=== PATIENT | female | born 1990 | race Caucasian/White ===

== ENCOUNTER 2017-04-01 08:24 | Emergency (ER) | payer BC ==
[~2017-04-01] VITALS: Ht 154.9 cm; Wt 52.6 kg
[~2017-04-01 08:24] MED LIST: ALPRAZOLAM ODT0.5 MG PO; AMOXICILLIN500 MG PO; CIPRO500 MG PO; CODEINE SU PO; NORCO 5-325 TA1 EACH PO; NORCO 7.5-3251 EACH PO; ZOFRAN4 MG PO
[2017-04-01] MEDS ORDERED: CITALOPRAM HBR20 MG PO (08:41)
[2017-04-01] MEDS ORDERED: PROPRANOLOL HCL20 MG PO (08:41)
[2017-04-01] MEDS ORDERED: LEVOFLOXACIN750 MG PO (10:31)
[2017-04-01] MEDS ORDERED: NORCO 5-325 TA1 EACH PO (10:31)
== END 2017-04-01 11:25 | disposition home or self-care (01) ==
LOC: ED 08:24
DX: N12 Tubulo-interstitial nephritis, not specified as acute or chronic (principal); F41.9 Anxiety disorder, unspecified; F17.200 Nicotine dependence, unspecified, uncomplicated; Z87.442 Personal history of urinary calculi; Z79.899 Other long term (current) drug therapy
CPT/HCPCS: 76775; 80053; 81001; 83690; 84703; 85025; 87077; 87088; 87186; 96361; 96374; 96375; 99284; J0696; J1885; J7030

== ENCOUNTER 2018-02-01 05:18 | Emergency (ER) | payer BC ==
[~2018-02-01] VITALS: Ht 154.9 cm; Wt 57.1 kg
[~2018-02-01 05:18] MED LIST changes: +CITALOPRAM HBR20 MG PO; +LEVOFLOXACIN750 MG PO; +PROPRANOLOL HCL20 MG PO
[2018-02-01] MEDS ORDERED: ZOFRAN ODT4 MG PO (07:14)
== END 2018-02-01 07:25 | disposition home or self-care (01) ==
LOC: ED 05:18
DX: O99.611 Diseases of the digestive system complicating pregnancy, first trimester (principal); K29.00 Acute gastritis without bleeding; O99.341 Other mental disorders complicating pregnancy, first trimester; F41.9 Anxiety disorder, unspecified; O99.331 Smoking (tobacco) complicating pregnancy, first trimester; F17.200 Nicotine dependence, unspecified, uncomplicated; Z3A.01 Less than 8 weeks gestation of pregnancy
CPT/HCPCS: 80053; 81001; 83690; 84703; 85025; 96374; 99284; J2405; J7030

== ENCOUNTER 2018-07-22 13:53 | Observation (INO) | payer BC, OTHER ==
[~2018-07-22 13:53] MED LIST changes: +ZOFRAN ODT4 MG PO
--- NOTE | 2018-07-22 15:52 | PR ---
[facility] [address] [facility] [place] [address] Signed AP Progress Notes Datetime Report Generated by CPN: 07/22/2018 15:52 Chief Complaint: low back pain PHYSICAL EXAM: [id number] Physical Exam Comments: fFN Positive VITAL SIGNS: [id number] Vital Signs: Reviewed; Within Normal Limits EXAM: [id number] Dilatation: 1.0 Effacement: 20 Station: -3 Contraction Comments: none MEMBRANES: [id number] Fetus A: [id number] FHR Baseline: 125 Variability: Moderate 6-25bpm Accelerations: 15X15 Fetus B: [id number] PROGRESS NOTES: [id number] Impression: Low Back Pain, Hx Delivery Plan: Will continue observation in [facility] overnight Recheck cervix in few hours. Signing Physician: Julia Lockhart MD Copies: ~ *Electronically Signed* 07/22/18 1552 JULIA LOCKHART MD PATIENT NAME: CLYDE RAE PROGRESS NOTE DATE OF : 89 PHYSICIAN: JULIA LOCKHART MD RPT #: [id number] REPORT IS CONFIDENTIAL AND NOT TO BE RELEASED WITHOUT AUTHORIZATION
--- NOTE | 2018-07-23 11:10 | PR ---
[facility] [address] [facility] [place], [place] [address] Signed AP Progress Notes Datetime Report Generated by CPN: 07/23/2018 11:10 Chief Complaint: Received SQ Terbutaline and po Procardia x1 last night; feeling better, minimal back pain now, no contractions PHYSICAL EXAM: [id number] General: Normal Abdomen: Normal Extremities: Normal Physical Exam Comments: fFN Positive VITAL SIGNS: [id number] Vital Signs: Reviewed; Within Normal Limits EXAM: [id number] Dilatation: 1.0 Effacement: 20 Station: -3 Contraction Comments: none MEMBRANES: [id number] Fetus A: [id number] FHR Baseline: 135 Variability: Moderate 6-25bpm Accelerations: 15X15 Fetus B: [id number] PROGRESS NOTES: L5614011 Impression: Back Pain Hx Delivery Plan: Home, Pelvic Rest, return to [facility] if increasing symptoms f/u in office in 3 d Signing Physician: Les Lockhart MD Copies: ~ *Electronically Signed* 07/23/18 1110 LES LOCKHART MD PATIENT NAME: CLYDE RAE NASREEN PROGRESS NOTE DATE OF : 92 PHYSICIAN: LES LOCKHART MD RPT #: [id number] REPORT IS CONFIDENTIAL AND NOT TO BE RELEASED WITHOUT AUTHORIZATION
== END 2018-07-23 11:10 | disposition home or self-care (01) ==
LOC: FBCO 13:53 → FBC 13:54
PROVIDERS: ADMIT General Practice
DX: O60.03 Preterm labor without delivery, third trimester (principal); O99.89 Other specified diseases and conditions complicating pregnancy, childbirth and the puerperium; M54.5 Low back pain; Z3A.30 30 weeks gestation of pregnancy
CPT/HCPCS: 81001; 82731; 87088; 96372; G0378; J3105; J7120

== ENCOUNTER 2018-08-17 16:20 | Observation (INO) | payer BC, OTHER ==
--- NOTE | 2018-08-17 18:16 | PR ---
[facility] [place] [facility] [address] [place], [place] [address] Signed AP Progress Notes Datetime Report Generated by CPN: 08/17/2018 18:16 Chief Complaint: Pubic pain, feels like has to void, even with Heaton, ?leaking fluid x1, very anxious about Heaton cath in place, wants it removed PHYSICAL EXAM: [id number] General: Normal HEENT: Normal Abdomen: Normal Geniturinry Exam: Normal Extremities: Normal Pelvic: Adequate Physical Exam Comments: Very anxious Vagina very dry, no fluid or mucous VITAL SIGNS: R3963033 Vital Signs: Reviewed; Within Normal Limits VS Notable Details: Amnisure Neg EXAM: [id number] Dilatation: 2.0 Effacement: 0 Station: -3 Contraction Comments: none showing MEMBRANES: [id number] Pooling: Negative Nitrazine: Positive Membranes: Intact Fetus A: [id number] FHR Baseline: 135 Variability: Moderate 6-25bpm Accelerations: 15X15 Presentation: Vertex Fetus B: [id number] PROGRESS NOTES: [id number] Impression: Contractions - no cervical change Plan: PAtient getting very upset about Heaton, so will remove Heaton and stop MagSO4, but explained that if contracitons restart, may need to reinsert Heaton and restart MagSO$, but will just monitor for now. Patient more calm and agrees to plan. Signing Physician: Julia Lockhart MD *Electronically Signed* 08/17/18 1816 JULIA LOCKHART MD PATIENT NAME: CLYDE RAE PROGRESS NOTE DATE OF : 92 PHYSICIAN: JULIA LOCKHART MD RPT #: [id number] REPORT IS CONFIDENTIAL AND NOT TO BE RELEASED WITHOUT AUTHORIZATION [address] [place] [address] Signed Copies: ~ *Electronically Signed* 08/17/18 181 JULIA LOCKHART MD PATIENT NAME: CLYDE RAE NASREEN PROGRESS NOTE DATE OF : 92 PHYSICIAN: JULIA LOCKHART MD RPT #: [id number] REPORT IS CONFIDENTIAL AND NOT TO BE RELEASED WITHOUT AUTHORIZATION
--- NOTE | 2018-08-17 19:25 | PR ---
[facility] [address] [facility] [place] [address] Signed AP Progress Notes Datetime Report Generated by CPN: 08/17/2018 19:25 Chief Complaint: Feeling better, not feeling contractions now PHYSICAL EXAM: [id number] General: Normal HEENT: Normal Abdomen: Normal Geniturinry Exam: Normal Extremities: Normal Pelvic: Adequate Physical Exam Comments: Very anxious Vagina very dry, no fluid or mucous VITAL SIGNS: B0954335 Vital Signs: Reviewed; Within Normal Limits VS Notable Details: Amnisure Neg EXAM: T7562673 Dilatation: 2.0 Effacement: 0 Station: -3 Contraction Comments: rare MEMBRANES: [id number] Pooling: Negative Nitrazine: Positive Membranes: Intact Fetus A: [id number] FHR Baseline: 140 Variability: Moderate 6-25bpm Accelerations: 15X15 Presentation: Vertex Fetus B: [id number] PROGRESS NOTES: W6290547 Impression: Contractions - Resolved at present Plan: Will continue monitoring contractions, OK to eat now Signing Physician: Julia Lockhart MD Copies: *Electronically Signed* 08/17/18 192 JULIA LOCKHART MD PATIENT NAME: CLYDE RAE PROGRESS NOTE DATE OF : 92 PHYSICIAN: JULIA LOCKHART MD RPT #: [id number] REPORT IS CONFIDENTIAL AND NOT TO BE RELEASED WITHOUT AUTHORIZATION [address] [address] Signed ~ *Electronically Signed* 08/17/181924 JULIA LOCKHART MD PATIENT NAME: CLYDE RAE PROGRESS NOTE DATE OF : 92 PHYSICIAN: JULIA LOCKHART MD RPT #: [id number] REPORT IS CONFIDENTIAL AND NOT TO BE RELEASED WITHOUT AUTHORIZATION
--- NOTE | 2018-08-17 20:49 | PR ---
[facility] [address] [place], [place] [address] Signed AP Progress Notes Datetime Report Generated by CPN: 08/17/2018 20:49 Chief Complaint: no complaints, not feeling contractions at this time PHYSICAL EXAM: [id number] General: Normal HEENT: Normal Abdomen: Normal Geniturinry Exam: Normal Extremities: Normal Pelvic: Adequate Physical Exam Comments: Very anxious Vagina very dry, no fluid or mucous VITAL SIGNS: P1243134 Vital Signs: Reviewed; Within Normal Limits VS Notable Details: Amnisure Neg EXAM: K6464648 Dilatation: 2.5 Effacement: 70 Station: -1 Contraction Comments: every 2-4 minutes MEMBRANES: [id number] Pooling: Negative Nitrazine: Positive Membranes: Intact Fetus A: [id number] FHR Baseline: 150 Variability: Moderate 6-25bpm Accelerations: 10X10 Presentation: Vertex Fetus B: [id number] PROGRESS NOTES: U5922874 Impression: Labor Plan: Now some cervical change, baby further in pelvis. Received SQ Terbutaline x 1 earliery, will give PO Procardia now. May need to restart MagSO4. Due to previous Delivery with Precipitous labor, fel that patient should have Maternal Transport now. Call placed to [facility] to set up Maternal Transfer discussed with patient *Electronically Signed* 08/17/182048 LES LOCKHART MD PATIENT NAME: CLYDE RAE PROGRESS NOTE DATE OF : 92 PHYSICIAN: LES LOCKHART MD RPT #: [id number] REPORT IS CONFIDENTIAL AND NOT TO BE RELEASED WITHOUT AUTHORIZATION [facility] [address] [place], [place] [address] Signed Signing Physician: Les Lockhart MD Copies: ~ *Electronically Signed* 08/17/18 2049 LES LOCKHART MD PATIENT NAME: CLYDE RAE NASREEN PROGRESS NOTE DATE OF : 92 PHYSICIAN: LES LOCKHART MD RPT #: [id number] REPORT IS CONFIDENTIAL AND NOT TO BE RELEASED WITHOUT AUTHORIZATION
--- NOTE | 2018-08-17 21:06 | PR ---
[facility] [address] [place], [place] [address] Signed AP Progress Notes Datetime Report Generated by CPN: 08/17/2018 21:06 Chief Complaint: labor PHYSICAL EXAM: [id number] General: Normal HEENT: Normal Abdomen: Normal Geniturinry Exam: Normal Extremities: Normal Pelvic: Adequate Physical Exam Comments: Very anxious Vagina very dry, no fluid or mucous VITAL SIGNS: S4958261 Vital Signs: Reviewed; Within Normal Limits VS Notable Details: Amnisure Neg EXAM: W4317637 Dilatation: 2.5 Effacement: 75 Station: -1 Contraction Comments: rare MEMBRANES: [id number] Pooling: Negative Nitrazine: Positive Membranes: Intact Fetus A: [id number] FHR Baseline: 135 Variability: Moderate 6-25bpm Accelerations: 10X10 Presentation: Vertex Fetus B: [id number] PROGRESS NOTES: F8489072 Impression: Labor Plan: Maternal Transport accepted by Dr. Ott ([facility]) Patient already received 1st dose of Betamethasone Will restart MagSO4 and Heaton [facility] called. Discussed with patient, consent signed Signing Physician: Julia Floyd MD *Electronically Signed* 08/17/182105 JULIA FLOYD MD PATIENT NAME: CLYDE RAE PROGRESS NOTE DATE OF : 92 PHYSICIAN: JULIA FLOYD MD RPT #: [id number] REPORT IS CONFIDENTIAL AND NOT TO BE RELEASED WITHOUT AUTHORIZATION [facility] [address] [place], [place] [address] Signed Copies: ~ *Electronically Signed* 08/17/18 2106 JULIA FLOYD MD PATIENT NAME: CLYDE RAE NASREEN PROGRESS NOTE DATE OF : 92 PHYSICIAN: JULIA FLOYD MD RPT #: [id number] REPORT IS CONFIDENTIAL AND NOT TO BE RELEASED WITHOUT AUTHORIZATION
== END 2018-08-17 21:30 | disposition short-term general hospital (02) ==
LOC: FBCO 16:20 → FBC 18:30
PROVIDERS: ADMIT General Practice
DX: O60.02 Preterm labor without delivery, second trimester (principal); Z3A.24 24 weeks gestation of pregnancy
CPT/HCPCS: 59025; 81001; 84112; 99213; G0378; J0702; J3105; J3475; J7120

== ENCOUNTER 2018-08-24 05:10 | Inpatient (IN) | payer BC, OTHER ==
[~2018-08-24] VITALS: Ht 154.9 cm; Wt 65.0 kg
--- NOTE | 2018-08-24 10:55 | PR ---
[facility] [address] [facility] [place], [place] [address] Signed Progress Notes IP Datetime Report Generated by CPN: 08/24/2018 10:55 PROGRESS NOTES: [id number] Impression: Normal progression of labor Plan: Continue present management; Anticipate Vaginal Delivery VITAL SIGNS: K2685936 Vital Signs: Reviewed; Within Normal Limits VS Notable Details: Amnisure Neg EXAM: B7966887 Dilatation: 9.0 Effacement: 100 Station: -1 Uterine Contractions: every 2 minutes MEMBRANES: [id number] Pooling: Negative Nitrazine: Positive Membrane Status: Ruptured Amniotic Fluid Color: Meconium, Light Comments: Doing well with Epidural except for some upper back pain. On O2, change from side to side due to decreased variability. Expect delivery soon, so will continue monitoring closely. Fetus A: [id number] FHR Baseline: 150 Variability: Moderate 6-25bpm Accelerations: 10X10 Decelerations: Early; Late Presentation: Vertex Fetus B: [id number] Signing Physician: Julia Lockhart MD Copies: ~ *Electronically Signed* 08/24/18 1055 JULIA LOCKHART MD PATIENT NAME: CLYDE RAE PROGRESS NOTE DATE OF : 92 PHYSICIAN: JULIA LOCKHART MD RPT #: [id number] REPORT IS CONFIDENTIAL AND NOT TO BE RELEASED WITHOUT AUTHORIZATION
--- NOTE | 2018-08-25 08:52 | PR ---
[facility] [address] [facility] [place] [address] Signed PP Progress Notes Datetime Report Generated by CPN: 08/25/2018 08:52 SUBJECTIVE: [id number] Pain: Within normal limits Nausea/Vomiting: Denies Vital Signs: P2494830 Vital Signs: Reviewed; Within Normal Limits Notable Details: PP Hgb/Hct = 11.7/34.7 EXAM: H8948356 Abdomen/Uterus: Normal Lochia: Normal Extremities: Normal IMPRESSION/PLAN/PROCEDURES: Q8310966 Impression: Normal progression Plan: Continue present management Procedures: None Progress Notes: Doing well, without complaint Signing Physician: Julia Lockhart MD Copies: ~ *Electronically Signed* 08/25/18 0852 JULIA LOCKHART MD PATIENT NAME: CLYDE RAE PROGRESS NOTE DATE OF : 92 PHYSICIAN: JULIA LOCKHART MD RPT #: [id number] REPORT IS CONFIDENTIAL AND NOT TO BE RELEASED WITHOUT AUTHORIZATION
--- NOTE | 2018-08-26 12:32 | PR ---
[facility] [address] [facility] [place] [address] Signed PP Progress Notes Datetime Report Generated by CPN: 08/26/2018 12:32 SUBJECTIVE: [id number] Pain: Within normal limits Nausea/Vomiting: Denies Vital Signs: R9092308 Vital Signs: Reviewed; Within Normal Limits Notable Details: PP Hgb/Hct = 11.7/34.7 EXAM: H9173413 Abdomen/Uterus: Normal Lochia: Normal Extremities: Normal IMPRESSION/PLAN/PROCEDURES: Q0725557 Impression: Normal progression Plan: Continue present management Procedures: None Progress Notes: Doing well, without complaint. Signing Physician: Julia Lockhart MD Copies: ~ *Electronically Signed* 08/26/18 1232 JULIA LOCKHART MD PATIENT NAME: CLYDE RAE PROGRESS NOTE DATE OF : 92 PHYSICIAN: JULIA LOCKHART MD RPT #: [id number] REPORT IS CONFIDENTIAL AND NOT TO BE RELEASED WITHOUT AUTHORIZATION
--- NOTE | 2018-08-27 12:50 | PR ---
[facility] [address] [facility] [place] [address] Signed PP Progress Notes Datetime Report Generated by CPN: 08/27/2018 12:50 SUBJECTIVE: [id number] Pain: Within normal limits Nausea/Vomiting: Denies Vital Signs: O4570186 Vital Signs: Reviewed; Within Normal Limits Notable Details: PP Hgb/Hct = 11.7/34.7 EXAM: A5691300 Abdomen/Uterus: Normal Lochia: Normal Extremities: Normal IMPRESSION/PLAN/PROCEDURES: I9261452 Impression: Normal progression Plan: Discharge Procedures: None Progress Notes: Doing well, ready to go home, not taking any meds, no Rx needed Signing Physician: Julia Lockhart MD Copies: ~ *Electronically Signed* 08/27/18 3982 JULIA LOCKHART MD PATIENT NAME: CLYDE RAE PROGRESS NOTE DATE OF : 92 PHYSICIAN: JULIA LOCKHART MD RPT #: [id number] REPORT IS CONFIDENTIAL AND NOT TO BE RELEASED WITHOUT AUTHORIZATION
== END 2018-08-27 13:20 | disposition home or self-care (01) | DRG 806 ==
LOC: FBCO 05:10 → FBC 05:21
PROVIDERS: ADMIT General Practice
PROC: 10E0XZZ Delivery of Products of Conception, External Approach (ICD-10-PCS; principal; 2018-08-24)
PROC: 0UQGXZZ Repair Vagina, External Approach (ICD-10-PCS; 2018-08-24)
PROC: 0UQMXZZ Repair Vulva, External Approach (ICD-10-PCS; 2018-08-24)
PROC: 00HU33Z Insertion of Infusion Device into Spinal Canal, Percutaneous Approach (ICD-10-PCS; 2018-08-24)
PROC: 3E0R3BZ Introduction of Anesthetic Agent into Spinal Canal, Percutaneous Approach (ICD-10-PCS; 2018-08-24)
DX: O60.14X0 Preterm labor third trimester with preterm delivery third trimester, not applicable or unspecified (principal); O71.4 Obstetric high vaginal laceration alone; Z37.0 Single live birth; O99.324 Drug use complicating childbirth; Z3A.35 35 weeks gestation of pregnancy; O14.94 Unspecified pre-eclampsia, complicating childbirth; O71.82 Other specified trauma to perineum and vulva; O76 Abnormality in fetal heart rate and rhythm complicating labor and delivery; O77.0 Labor and delivery complicated by meconium in amniotic fluid; O69.82X0 Labor and delivery complicated by other cord entanglement, without compression, not applicable or unspecified; F12.90 Cannabis use, unspecified, uncomplicated; O99.344 Other mental disorders complicating childbirth; F41.9 Anxiety disorder, unspecified; R11.0 Nausea; O99.89 Other specified diseases and conditions complicating pregnancy, childbirth and the puerperium; Z72.0 Tobacco use
CPT/HCPCS: 01960; 36415; 85027; J2590; J2795; J7120

== ENCOUNTER 2020-10-20 10:00 | Observation (INO) | payer OTHER ==
[~2020-10-20] VITALS: Ht 154.9 cm; Wt 62.1 kg
--- NOTE | 2020-10-20 15:00 | NUR ---
BOTH NARES SWABBED FOR COVID-19 WITHOUT COMPLICATION. SAMPLE TAKEN TO [facility] FOR RAPID TESTING.
== END 2020-10-21 06:15 | disposition home or self-care (01) ==
LOC: FBCO 10:00 → FBC 14:03
PROVIDERS: ADMIT Obstetrics & Gynecology; ATTEND Obstetrics & Gynecology
DX: O47.03 False labor before 37 completed weeks of gestation, third trimester (principal); Z3A.33 33 weeks gestation of pregnancy; Z20.822 Contact with and (suspected) exposure to COVID-19
CPT/HCPCS: 59025; 81001; 82731; 87088; 87491; 87591; 96374; 96376; 99213; C9803; G0378; J0702; J7121; U0003

== ENCOUNTER 2020-11-21 00:36 | Inpatient (IN) | payer OTHER ==
[~2020-11-21] VITALS: Ht 154.9 cm; Wt 64.4 kg
--- NOTE | 2020-11-21 01:26 | NUR ---
PT WAS SWABBED FOR COVID 19 FULL PPE DONNED
--- NOTE | 2020-11-21 03:55 | PR ---
[facility] [address] [place], [place] [address] Signed Progress Notes IP Datetime Report Generated by BETTE: 11/21/2020 03:54 PROGRESS NOTES: [id number] Impression: Normal Progression of Labor; Reassuring Heart Rate Procedures: Artificial ROM; Sterile Vag Exam Plan: Continue Present Management; Anticipate Vaginal Delivery Informed Consent Obtain: Vaginal Delivery VITAL SIGNS: P2816110 Vital Signs: Reviewed; Within Normal Limits EXAM: [id number] Dilatation: 6.0 Effacement: 90 Station: -1 Contractions: irregular MEMBRANES: W2304766 Membranes Status: Intact Comments: Pt seen and examined. C/O some asthma symptoms and does not have home inhaler. Albuterol inhaler ordered and administered. Discussed AROM and AROM performed without difficulty. Discussed anticipated course of labor. All questions answered. Anticipate soon FETUS A: [id number] FHR Baseline: 135 Variability: Moderate 6-25bpm Accelerations: 15X15 Decelerations: None FHR Category: Category I Presentation: Vertex Comments on Fetus A: No evidence of metabolic acidosis FETUS B: [id number] Signing Physician: Cecily Addison DO Copies: ~ *Electronically Signed* 11/21/20 0354 CECILY ADDISON DO PATIENT NAME: CLYDE RAE PROGRESS NOTE DATE OF : 92 PHYSICIAN: CECILY ADDISON DO RPT #: [id number] REPORT IS CONFIDENTIAL AND NOT TO BE RELEASED WITHOUT AUTHORIZATION
--- NOTE | 2020-11-21 07:49 | PR ---
[facility] [address] [facility] [place], [place] [address] Signed Progress Notes IP Datetime Report Generated by CPN: 11/21/2020 07:49 PROGRESS NOTES: [id number] Impression: Normal Progression of Labor; Reassuring Heart Rate Procedures: Sterile Vag Exam Plan: Continue Present Management; Anticipate Vaginal Delivery Informed Consent Obtain: Vaginal Delivery VITAL SIGNS: [id number] Vital Signs: Reviewed; Within Normal Limits EXAM: [id number] Dilatation: 9.5 Effacement: 100 Station: 0 Contractions: irregular MEMBRANES: U3661696 Membranes Status: Intact Comments: Pt seen and examined. Doing well. Comfortable w/ contractions. Thin rim of easily reducable cervix anteriorly. Discussed anticipated course of 2nd stage of labor/delivery. All questions answered. FETUS A: [id number] FHR Baseline: 135 Variability: Moderate 6-25bpm Accelerations: 15X15 Decelerations: None FHR Category: Category I Presentation: Vertex Comments on Fetus A: No evidence of metabolic acidosis FETUS B: [id number] Signing Physician: Cecily Addison DO Copies: ~ *Electronically Signed* 11/21/20 0749 CECILY ADDISON DO PATIENT NAME: CLYDE RAE PROGRESS NOTE DATE OF : 92 PHYSICIAN: CECILY ADDISON DO RPT #: [id number] REPORT IS CONFIDENTIAL AND NOT TO BE RELEASED WITHOUT AUTHORIZATION
--- NOTE | 2020-11-22 08:55 | PR ---
[facility] [address] [facility] [place], [place] [address] Signed PP Progress Notes Datetime Report Generated by CPN: 11/22/2020 08:55 SUBJECTIVE: [id number] Pain: Within Normal Limits Nausea/Vomiting: Denies Flatus: Yes Vital Signs: [id number] Vital Signs: Reviewed Notable Details: Few slightly elevated BPs Cardiovascular: Normal Respiratory: Normal Abdomen/Uterus: Normal Lochia: Normal Vulva/Perineum: Not Done Breasts: Not Done CVA Tenderness: Normal Extremities: Normal Incision: Not Applicable Progress: Normal Exam Comments: Fundus firm U-2 nontender. IMPRESSION/PLAN/PROCEDURES: [id number] Impression: Normal Progression Plan: Discharge Progress Notes: Pt seen and examined. Doing well. Ambulating, voiding, and tolerating full diet. Pain and lochia minimal. well. No fevers/chills/ or other concerns. No HOLDER, RUQ pain, or visual changes. Few elevated BPs. Will have pt present for 2-3 day BP check. Planning tubal ligation pp Signing Physician: Cecily Addison DO Copies: ~ *Electronically Signed* 11/22/20 0855 CECILY ADDISON DO PATIENT NAME: CLYDE RAE PROGRESS NOTE DATE OF : 92 PHYSICIAN: CECILY ADDISON DO RPT #: [id number] REPORT IS CONFIDENTIAL AND NOT TO BE RELEASED WITHOUT AUTHORIZATION
== END 2020-11-22 13:30 | disposition home or self-care (01) | DRG 806 ==
LOC: FBCO 00:36 → FBC 01:00
PROVIDERS: ADMIT Obstetrics & Gynecology; ATTEND Obstetrics & Gynecology
PROC: 10E0XZZ Delivery of Products of Conception, External Approach (ICD-10-PCS; principal; 2020-11-21)
PROC: 10907ZC Drainage of Amniotic Fluid, Therapeutic from Products of Conception, Via Natural or Artificial Opening (ICD-10-PCS; 2020-11-21)
PROC: 00HU33Z Insertion of Infusion Device into Spinal Canal, Percutaneous Approach (ICD-10-PCS; 2020-11-21)
PROC: 3E0R3BZ Introduction of Anesthetic Agent into Spinal Canal, Percutaneous Approach (ICD-10-PCS; 2020-11-21)
DX: O34.33 Maternal care for cervical incompetence, third trimester (principal); O99.324 Drug use complicating childbirth; Z37.0 Single live birth; Z20.822 Contact with and (suspected) exposure to COVID-19; F12.90 Cannabis use, unspecified, uncomplicated; Z3A.38 38 weeks gestation of pregnancy; Z87.891 Personal history of nicotine dependence; Z14.1 Cystic fibrosis carrier
CPT/HCPCS: 01960; 36415; 85027; A9270; J2590; J3010; J7121; U0003

== ENCOUNTER 2021-07-22 09:16 | Emergency (ER) | payer OTHER ==
[~2021-07-22] VITALS: Ht 154.9 cm; Wt 59.0 kg
[2021-07-22] MEDS ORDERED: PROBIOTIC 15 B1 EACH PO (10:22)
[2021-07-22] MEDS ORDERED: DILAUDID2 MG PO (11:19)
[2021-07-22] MEDS ORDERED: ONDANSETRON ODT8 MG PO (11:19)
== END 2021-07-22 11:49 | disposition home or self-care (01) ==
LOC: ED 09:16
DX: S83.91XA Sprain of unspecified site of right knee, initial encounter (principal); X50.1XXA Overexertion from prolonged static or awkward postures, initial encounter; Z87.891 Personal history of nicotine dependence
CPT/HCPCS: 73560; 99283-25; A9270